=== PATIENT | male | born 1990 | race Caucasian/White ===

== ENCOUNTER 2017-04-04 01:34 | Emergency (ER) | payer SELFPAY ==
[2017-04-04] MEDS ORDERED: IBUPROFEN 600 MG TABLET PO ONE (01:44)
--- NOTE | 2017-04-04 01:52 | Emergency Department Record ---
History of Present Illness - General Chief Complaint: Fall Injury Stated Complaint: FALL Time Seen by Provider: 04/04/17 01:39 Source: Patient Mode of Arrival: EMS Limitations: No limitations - History of Present Illness Initial Comments: The patient was jumping off a 2 foot stepladder and caught his L knee on a door knob and then landed onto the L knee. He was able to walk on it with pain. He denies any other injuries. 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, by bystander Place Fall Occurred: Work Loss of Consciousness: None Prolonged Down Time?: No Symptoms Prior to Fall: None Severity: Moderate Severity scale (1-10): 7 Quality: Aching - Related Data Home Medications Medication Instructions Recorded Confirmed Last Taken Ibuprofen [Motrin 400Mg] 400 mg PO Q8H PRN 04/04/17 04/04/17 Unknown Allergies Allergy/AdvReac Type Severity Reaction Status Date / Time No Known Drug Allergies Allergy Verified 04/04/17 01:36 Travel Screening - Travel/Exposure Within Last 30 Days Have you traveled within the last 30 days?: No Review of Systems Constitutional: Denies: Chills, Fever Eyes: Denies: Eye discharge ENT: Denies: Congestion Respiratory: Denies: Cough Past Medical History - SOCIAL HISTORY Smoking Status: Light tobacco smoker (<10/day) Alcohol Use: Rare Drug Use: None - ENDOCRINE Hx Endocrine Disorders: No - MUSCULOSKELETAL Hx Musculoskeletal Disorders: No Family Medical History Any Significant Family History?: Yes Hx Cancer: Grandparents Physical Exam - General General Appearance: Alert, Oriented x3, Cooperative, No acute distress - Head Head exam: Atraumatic, Normocephalic, Normal inspection - Eye Eye exam: Normal appearance, PERRL - Neck Neck exam: Normal inspection, Full ROM. negative: Tenderness - Respiratory Respiratory exam: Normal lung sounds bilaterally. negative: Respiratory distress - Cardiovascular Cardiovascular Exam: Regular rate, Normal rhythm, Normal heart sounds - Extremities Extremities exam: Normal inspection, Normal capillary refill, Tenderness (There is mild patellar tenderness with mild posterior knee tenderness.), Other ( There is no ligamentous laxity and no anterior drawer sign. The L lower leg and foot are NVI.). negative: Calf tenderness, Full ROM (decreased full flexion due to pain.), Joint swelling (There is no joint effusion.), Pedal edema - Neurological Neurological exam: Alert. negative: Motor sensory deficit Course Vital Signs 04/04/17 01:37 Temperature 97.6 F Pulse Rate [ 81 Pulse Ox Probe] Respiratory 21 Rate Blood Pressure 131/90 [Left Arm] Pulse Ox 97 - Reevaluation(s) Reevaluation #1: I did discuss with the patient the knee xrays appear normal. He is still having pain with ROM and is walking with a limp. We will place him with a knee immobilizer and crutches and have him F/U with Occupational health tomorrow for recheck. 04/04/17 02:14 Medical Decision Making - Data Complexity MDM Data: X-Ray Ordered and/or Reviewed - Radiology Data Radiology results: Image reviewed (L Knee: Neg.) Disposition Disposition: Discharge Clinical Impression: Left knee sprain Qualifiers: Encounter type: initial encounter Involved ligament of knee: other ligament Qualified Code(s): S83.8X2A - Sprain of other specified parts of left knee, initial encounter Disposition: Home, Self-Care Condition: (1) Good Instructions: Knee Sprain (ED) Additional Instructions: Please use Advil or Motrin for pain and use the Immobilizer and crutches during the day with no weight bearing on the L leg. Please see your work Occupational Health Provider tomorrow per the rules at the [employer]. Forms: Patient Portal Access Time of Disposition: 02:17
[2017-04-04 03:31] LABS: AMPHETAMINE SCREEN URINE NOT DETECTED; BARBITURATE SCREEN URINE NOT DETECTED; BENZODIAZEPINE SCREEN URINE NOT DETECTED; COCAINE SCREEN URINE NOT DETECTED; METHADONE SCREEN URINE NOT DETECTED; METHAMPHETAMINE SCREEN NOT DETECTED; OPIATE SCREEN URINE NOT DETECTED; OXYCODONE SCREEN URINE NOT DETECTED; PHENCYCLIDINE SCREEN URINE NOT DETECTED; PROPOXYPHENE SCREEN URINE NOT DETECTED; THC SCREEN URINE NOT DETECTED; TRICYCLIC ANTIDEPRESSANT SCRN NOT DETECTED
== END 2017-04-04 03:36 | disposition home or self-care (01) ==
LOC: ER 01:34
DX: S83.8X2A Sprain of other specified parts of left knee, initial encounter (principal); W11.XXXA Fall on and from ladder, initial encounter; Y92.63 Factory as the place of occurrence of the external cause; Y99.0 Civilian activity done for income or pay
CPT/HCPCS: 80305; 99283

== ENCOUNTER 2018-03-10 01:26 | Emergency (ER) | payer OTHER ==
--- NOTE | 2018-03-10 01:39 | Emergency Department Record ---
History of Present Illness - General Chief Complaint: Laceration(s) Stated Complaint: LACERATION Time Seen by Provider: 03/10/18 01:33 Source: Patient Mode of Arrival: Ambulatory Limitations: No limitations - History of Present Illness Initial Commments: 27 yo male presents from work. He dropped a 5 pound piece of metal on his finger. It had a sharp burp on the edge and lacerated his left index finger. No lose of ROM. No numbness or tingling. He did not see any FB but he does work around metal. Tetanus is up to date Onset/Timin -: Minutes(s) Place: Work Context: Accidental, Sharp object use Associated Symptoms: None - [place] Coma Scale Eye Response: (4) Open spontaneously Motor Response: (6) Obeys commands Verbal Response: (5) Oriented Sascha Total: 15 - Related Data Hx Tetanus Toxoid Vaccination: Yes Patient Tetanus UTD (within 5 yrs): Yes Allergies Allergy/AdvReac Type Severity Reaction Status Date / Time No Known Drug Allergies Allergy Verified 04/04/17 01:36 Travel Screening - Travel/Exposure Within Last 30 Days Have you traveled within the last 30 days?: No - Travel/Exposure Within Last Year Have you traveled outside the [place] in the last year?: No - Additonal Travel Details Have you been exposed to anyone with a communicable illness?: No - Travel Symptoms Symptom Screening: None Review of Systems Constitutional: Denies: Chills, Fever Eyes: Denies: Vision change ENT: Denies: Congestion, Throat pain Respiratory: Denies: Cough Cardiovascular: Denies: Dyspnea on exertion, Syncope Endocrine: Denies: Fatigue Gastrointestinal: Denies: Abdominal pain, Diarrhea, Nausea, Vomiting Genitourinary: Denies: Dysuria Musculoskeletal: Reports: As per HPI, Arthralgia Skin: Reports: Other (finger laceration). Denies: Bruising, Change in color Neurological: Denies: Confusion Psychiatric: Denies: Anxiety Hematological/Lymphatic: Denies: Easy bleeding, Easy bruising, Swollen glands Past Medical History - SOCIAL HISTORY Smoking Status: Light tobacco smoker (<10/day) Alcohol Use: None Drug Use: None - RESPIRATORY Hx Respiratory Disorders: No - CARDIOVASCULAR Hx Cardio Disorders: No - NEURO Hx Neuro Disorders: No - GI Hx GI Disorders: No - Hx Genitourinary Disorders: No - ENDOCRINE Hx Endocrine Disorders: No - MUSCULOSKELETAL Hx Musculoskeletal Disorders: No - PSYCH Hx Psych Problems: No - HEMATOLOGY/ONCOLOGY Hx Hematology/Oncology Disorders: No Family Medical History Any Significant Family History?: No Hx Cancer: Grandparents Physical Exam - General General Appearance: Alert, Oriented x3, Cooperative, No acute distress Limitations: No limitations - Head Head exam: Atraumatic, Normal inspection - Eye Eye exam: Normal appearance. negative: Conjunctival injection, Scleral icterus - ENT ENT exam: Normal exam Ear exam: Normal external inspection Nasal Exam: Normal inspection Mouth exam: Normal external inspection - Neck Neck exam: Normal inspection - Cardiovascular Peripheral Pulses: 2+: Radial (L) - exam: Deferred - Extremities Extremities exam: Full ROM, Normal capillary refill, Tenderness. negative: Normal inspection Image of Hand: 1 - 1.5cm flap like laceration, no FB, full extension is intact - Neurological Neurological exam: Alert, Normal gait, Oriented X3. negative: Motor sensory deficit - Psychiatric Psychiatric exam: Normal affect, Normal mood - Skin Type of lesion: Laceration (1.5cm dorsal finger laceration) Course - Reevaluation(s) Reevaluation #1: The hand was soaked in ShurClens Betadine prep Digital Block with Sensorcaine/Lidocaine Plain 50/50 4ml Irrigated with NS XR ordered 03/10/18 01:42 03/10/18 02:07 The XR was reviewed No fracture or FB The wound was irrigated copiously with NS No tendon injury visualized A tourniquet was briefly placed to examine in a bloodless field No FB or tendon injury Ethilon 5-0 suture used 5 sutures placed with good wound approximation I explained the healing may be effected by the flap like nature of the laceration He was splinted and instructed to remain in extension to allow healing without tension on the wound Disposition Disposition: Discharge Clinical Impression: Finger laceration Disposition: Home, Self-Care Condition: (1) Good Instructions: Laceration (ED) Additional Instructions: Return immediately if the area is warm, red, tender, pus or concerns Clean the area once daily and replace the splint Do not bend the finger Suture removal in 10 days. Forms: Patient Portal Access Quality - Quality Measures Quality Measures: N/A - Blood Pressure Screening Does Patient Have Any of the Following: No Blood Pressure Classification: Pre-Hypertensive BP Reading Systolic Measurement: 133 Diastolic Measurement: 85 Screening for High Blood Pressure: < Pre-Hypertensive BP, F/U Documented > [ G8950] Pre-Hypertensive Follow-up Interventions: Referral to alternative/primary care provider.
[2018-03-10 04:24] LABS: AMPHETAMINE SCREEN URINE NOT DETECTED; BARBITURATE SCREEN URINE NOT DETECTED; BENZODIAZEPINE SCREEN URINE NOT DETECTED; COCAINE SCREEN URINE NOT DETECTED; METHADONE SCREEN URINE NOT DETECTED; METHAMPHETAMINE SCREEN NOT DETECTED; OPIATE SCREEN URINE NOT DETECTED; OXYCODONE SCREEN URINE NOT DETECTED; PHENCYCLIDINE SCREEN URINE NOT DETECTED; PROPOXYPHENE SCREEN URINE NOT DETECTED; THC SCREEN URINE NOT DETECTED; TRICYCLIC ANTIDEPRESSANT SCRN NOT DETECTED
--- NOTE | 2018-03-11 10:15 | RADIOLOGY REPORT ---
EXAM: LEFT INDEX FINGER HISTORY: PATIENT DROPPED A HEAVY METAL PART ON PIP JOINT OF INDEX FINGER AT WORK TONIGHT WITH PAIN AND SWELLING WELL LACERATION IN THAT AREA. TECHNIQUE: Three views of the left index finger were obtained. Comparison: No prior left hand or index finger series. Encounter: Initial. FINDINGS: Soft tissue swelling is seen involving the index finger particularly along the radial aspect. There is some gauze or other dressing creating some artifact. No fracture or dislocation identified. IMPRESSION: SOME SOFT TISSUE SWELLING INVOLVING THE INDEX FINGER. NO FRACTURE IDENTIFIED. JOB NUMBER: [id number] [facility]
== END 2018-03-10 02:26 | disposition home or self-care (01) ==
LOC: ER 01:26
DX: S61.211A Laceration without foreign body of left index finger without damage to nail, initial encounter (principal); W22.8XXA Striking against or struck by other objects, initial encounter; F17.210 Nicotine dependence, cigarettes, uncomplicated; Y92.63 Factory as the place of occurrence of the external cause; Y99.0 Civilian activity done for income or pay
CPT/HCPCS: 12001; 73140; 80305; 99283; 99284

== ENCOUNTER 2018-03-19 10:16 | Emergency (ER) | payer OTHER ==
--- NOTE | 2018-03-19 10:28 | Emergency Department Record ---
History of Present Illness - General Stated Complaint: SUTURE REMOVAL Time Seen by Provider: 03/19/18 10:26 Source: Patient Mode of Arrival: Ambulatory Limitations: No limitations - History of Present Illness Initial Commments: The patient is here for suture removal. He denies any problems. Onset/Timin -: Days(s) - Related Data Hx Tetanus Toxoid Vaccination: Yes Allergies Allergy/AdvReac Type Severity Reaction Status Date / Time No Known Drug Allergies Allergy Verified 04/04/17 01:36 Past Medical History - SOCIAL HISTORY Smoking Status: Light tobacco smoker (<10/day) Drug Use: None - RESPIRATORY Hx Respiratory Disorders: No - CARDIOVASCULAR Hx Cardio Disorders: No - NEURO Hx Neuro Disorders: No - GI Hx GI Disorders: No - Hx Genitourinary Disorders: No - ENDOCRINE Hx Endocrine Disorders: No - MUSCULOSKELETAL Hx Musculoskeletal Disorders: No - PSYCH Hx Psych Problems: No - HEMATOLOGY/ONCOLOGY Hx Hematology/Oncology Disorders: No Family Medical History Hx Cancer: Grandparents Physical Exam - General General Appearance: Alert, Cooperative, No acute distress - Extremities Extremities exam: Other (The sutures were removed with no difficulty.). negative: Normal inspection (The L 2nd finger laceration is well healed.) Disposition Disposition: Discharge Clinical Impression: Visit for suture removal Disposition: Home, Self-Care Condition: (2) Stable Instructions: Stitches Removal (ED) Additional Instructions: Return to the ER for any problems. Forms: Patient Portal Access Time of Disposition: 10:28 Quality - Quality Measures Quality Measures: N/A - Blood Pressure Screening View Details: Yes Does Patient Have Any of the Following: No Blood Pressure Classification: Hypertensive Reading Systolic Measurement: 125 Diastolic Measurement: 97 Screening for High Blood Pressure: < First Hypertensive BP, F/U Documented > [ G8950] First Hypertensive Follow-up Interventions: Referral to alternative/primary care provider.
== END 2018-03-19 10:35 | disposition home or self-care (01) ==
LOC: ER 10:16
DX: Z48.02 Encounter for removal of sutures (principal)